=== PATIENT | male | born 1955 | race Caucasian/White ===

== ENCOUNTER 2017-05-12 09:15 | Outpatient (CLI) | payer MEDICARE | END 2017-05-12 09:30 | disposition home or self-care (01) | LOC: RT.N 09:15 | PROVIDERS: ATTEND Nurse Practitioner Gerontology | DX: Z01.810 Encounter for preprocedural cardiovascular examination (principal) | CPT/HCPCS: 93005 ==

== ENCOUNTER 2017-05-12 18:07 | Outpatient (CLI) | payer MEDICARE ==
[2017-05-12 13:07] LABS: BASOPHILS % (AUTO) 0.6 %; EOSINOPHILS # (AUTO) 0.4 10^3/uL (0.0-0.7); EOSINOPHILS % (AUTO) 5.4 %; HCT - HEMATOCRIT 43.7 % (42.0-52.0); HGB - HEMOGLOBIN 14.6 g/dL (14.0-18.0); LYMPHOCYTES # (AUTO) 1.6 10^3/uL (1.5-3.5); LYMPHOCYTES % (AUTO) 19.5 %; MEAN CORPUSCULAR HEMOGLOBIN 32.2 pg (27.0-31.0); MEAN CORPUSCULAR HGB CONC 33.4 g/dL (32.0-36.0); MEAN CORPUSCULAR VOLUME 96.3 fL (80.0-94.0); MEAN PLATELET VOLUME 8.6 fL (7.4-11.4); MONOCYTES # (AUTO) 0.5 10^3/uL (0.0-1.0); MONOCYTES % (AUTO) 6.3 %; NEUTROPHILS # (AUTO) 5.5 10^3/uL (1.5-6.6); NEUTROPHILS % (AUTO) 68.2 %; NUCLEATED RED BLOOD CELLS AUTO 0.1 /100WBC; RED BLOOD COUNT 4.54 10^6/uL (4.70-6.10); RED CELL DISTRIBUTION WIDTH 15.3 % (12.0-15.0); UNCORRECTED WHITE BLOOD COUNT 8.1 x10^3/uL; WHITE BLOOD COUNT 8.1 x10^3/uL (4.8-10.8)
[2017-05-12 14:31] LABS: ALBUMIN/GLOBULIN RATIO 1.1 (1.0-2.2); BILIRUBIN,TOTAL 0.7 mg/dL (0.2-1.0); BUN - BLOOD UREA NITROGEN 19 mg/dL (6-20); CARBON DIOXIDE - CO2 28 mmol/L (21-32); CHLORIDE 105 mmol/L (101-111); CHOL/HDL RATIO 2.8 (<5.0); CHOLESTEROL 168 mg/dL; CREATININE 0.8 mg/dL (0.6-1.2); GFR - MDRD 99 (>89); GLUCOSE 98 mg/dL (70-100); HDL CHOLESTEROL 60 mg/dL; LDL/HDL RATIO 1.6 (<3.6); POTASSIUM 4.1 mmol/L (3.5-5.0); SODIUM 137 mmol/L (135-145); TRIGLYCERIDES 53 mg/dL; VLDL CHOLESTEROL 11 mg/dL
== END 2017-05-12 18:08 | disposition home or self-care (01) ==
LOC: LAB.N 18:07
PROVIDERS: ATTEND Nurse Practitioner Gerontology
DX: Z01.818 Encounter for other preprocedural examination (principal); I10 Essential (primary) hypertension; B19.20 Unspecified viral hepatitis C without hepatic coma; Z13.9 Encounter for screening, unspecified
CPT/HCPCS: 36415; 80053; 80061; 84443; 85025; 87640

== ENCOUNTER 2017-09-29 10:29 | Outpatient (CLI) | payer MEDICARE, MEDICAID | END 2017-09-29 10:30 | disposition home or self-care (01) | LOC: LAB 10:29 | PROVIDERS: ATTEND Orthopaedic Surgery | DX: Z01.812 Encounter for preprocedural laboratory examination (principal); M16.12 Unilateral primary osteoarthritis, left hip; M25.832 Other specified joint disorders, left wrist | CPT/HCPCS: 36415; 86850; 86900; 86901 ==

== ENCOUNTER 2017-09-30 07:30 | Inpatient (IN) | payer MEDICARE, MEDICAID ==
[~2017-09-30 07:30] MED LIST: ceFAZolin 2 GM/50 ML 2 GM/50 ML BAG IV ONE
[2017-09-30] MEDS ORDERED: ACETAMINOPHEN 1,000 MG/100 ML 100 ML IV ONE ×2 (08:22→12:06)
[2017-09-30] MEDS ORDERED: CELECOXIB 100 MG CAPSULE PO ONE (08:22)
[2017-09-30] MEDS ORDERED: LACTATED RINGERS 1,000 ML IV ONE ×2 (09:12→13:46)
[2017-09-30] MEDS ORDERED: BUPIVACAINE 0.5%-EPI 1:200000 PF 10 ML VIAL ONE (10:40)
[2017-09-30] MEDS ORDERED: EPINEPHrine 1 MG/ML AMP ONE (10:40)
[2017-09-30] MEDS ORDERED: ROPIVACAINE 0.5% PF 20 ML AMPULE ONE (10:41)
[2017-09-30] MEDS ORDERED: KETOROLAC 30 MG/ML VIAL IVP ONE ×2 (12:06→12:46)
[2017-09-30] MEDS ORDERED: PROPOFOL 200 MG/20 ML VIAL IVP ONE (12:06)
[2017-09-30] MEDS ORDERED: fentaNYL 100 MCG/2 ML VIAL IVP ONE (12:06)
[2017-09-30] MEDS ORDERED: ONDANSETRON 4 MG/2 ML VIAL IVP ONE (12:06)
[2017-09-30] MEDS ORDERED: MORPHINE PF 10 MG/10 ML AMP EPI ONE (12:06)
[2017-09-30] MEDS ORDERED: LIDOCAINE-MPF 2% 5 ML VIAL IM ONE (12:06)
[2017-09-30] MEDS ORDERED: ROCURONIUM 50 MG/5 ML VIAL IVP ONE (12:06)
[2017-09-30] MEDS ORDERED: GLYCOPYRROLATE 1 MG/5 ML VIAL IVP ONE (12:06)
[2017-09-30] MEDS ORDERED: BUPIVACAINE 0.5%-EPI 1:200000 PF 30 ML VIAL SUBQ ONE (12:43)
[2017-09-30] MEDS ORDERED: MORPHINE PF 10 MG/10 ML AMP SUBQ ONE (12:44)
[2017-09-30] MEDS ORDERED: ROPIVACAINE 0.5% PF 20 ML AMPULE SUBQ ONE (12:44)
[2017-09-30] MEDS ORDERED: EPINEPHrine 1 MG/ML AMP IVP ONE (12:45)
[2017-09-30] MEDS ORDERED: ACETAMINOPHEN 1,000 MG/100 ML 100 ML IV PRN (13:34)
[2017-09-30] MEDS ORDERED: BISACODYL 10 MG SUPP PR PRN (13:34)
--- NOTE | 2017-09-30 13:34 | OPERATIVE REPORT ---
Operative Report - General Admit Date: 09/30/17 Procedure Date: 09/30/17 Planned Procedure: left JETHRO, and excision left wrist mass Pre-Op Diagnosis: left hip osteoarthritis/ left wrist dorsal mass Procedure Performed: Left total hip arthroplasty excision of left wrist dorsal mass - Procedure Note Primary Surgeon: dann Anesthesia Technique: General ET tube Estimated Blood Loss (mL): 100
[2017-09-30] MEDS: fentaNYL 100 MCG/2 ML VIAL ONE ×4 (13:37→14:11)
[2017-09-30] MEDS: HYDROmorphone 1 MG/ML CARPUJECT ONE ×3 (13:38→14:15)
[2017-09-30] MEDS: HYDROmorphone 1 MG/ML CARPUJECT IVP PRN ×4 (13:56→17:30)
[2017-09-30] MEDS ORDERED: HYDROmorphone 1 MG/ML CARPUJECT ONE (14:19)
[2017-09-30] MEDS ORDERED: INSULIN REGULAR HUMAN 100 UNIT/1 ML 10 ML MDV ONE (14:47)
--- NOTE | 2017-09-30 14:47 | XRAY Report ---
LEFT HIP AND PELVIS: 09/30/2017 CLINICAL INDICATION: Postop. FINDINGS: Frontal view of the hips and pelvis and crosstable lateral view of the left hip demonstrate a left hip replacement in place. Subcutaneous gas is seen. No fracture or acute hardware complication is appreciated. IMPRESSION: EXPECTED POSTOPERATIVE APPEARANCE OF LEFT HIP REPLACEMENT. TD: 09/30/2017 14:46
[2017-09-30] MEDS: SODIUM CHLORIDE 0.45% 1,000 ML IV SCH (15:05)
[2017-09-30] MEDS: SODIUM CHLORIDE FLUSH 0.9% 10 ML SYRINGE IVP SCH (15:54)
[2017-09-30] MEDS: oxyCOD/ACETAMIN 5 MG/325 MG TABLET PO PRN ×2 (17:27→20:47)
[2017-09-30] MEDS: ONDANSETRON 4 MG/2 ML VIAL IVP PRN (18:50)
[2017-09-30] MEDS: PROCHLORPERAZINE 10 MG/2 ML VIAL IVP PRN (19:56)
--- NOTE | 2017-09-30 20:12 | OPERATIVE REPORT ---
DATE OF SERVICE: 09/30/2017 Physician: Lorne Best MD PREOPERATIVE DIAGNOSIS: Left hip osteoarthritis. SECONDARY DIAGNOSIS: Left dorsal wrist mass. POSTOPERATIVE DIAGNOSIS: NAME OF PROCEDURE 1. Left total hip arthroplasty. 2. Left dorsal wrist mass excision. OPERATING SURGEON: Lorne Best MD ANESTHESIA: General by Dr. Klein. INDICATIONS FOR SURGERY: Patient is a 62-year-old male with severe bilateral hip arthritis, who has undergone previous successful right hip arthroplasty and presents now for left hip arthroplasty. The patient has failed nonoperative treatment, has chronic hip pain and limping. Additionally, the patient has a bothersome and longstanding pea-sized nodule at the dorsal aspect of his wrist, adjacent to the distal aspect of the ulna. This has been slightly tender, fluctuant in size, and appears to be either a ganglion of a tendon sheath or a fibroma-type cyst. Recommendation was that the patient have this directly excised while under anesthesia. DESCRIPTION OF OPERATIVE PROCEDURE: The patient was taken to the operating room and was given a general anesthetic in the supine position. The patient was positioned on the table for an anterior approach to his left hip. This included padding beneath his sacrum, a sterile towel over the groin area and sterile prepping and draping of both lower extremities with the left hip surgical site covered with Vi-Drape. The initial procedure after surgical timeout was to create an anterior approach to the left hip utilizing an 8 cm oblique incision over the proximal hip, extending down to the fascia overlying the tensor fascia muscle. This fascia was incised longitudinally and a direct anterior approach was made medial to the tensor muscle. With retractors in position, the anterior capsule of the hip was approached and cautery was used to control the [TIME: 02:51] of vessels on that approach and fatty tissues removed from the capsule. A capsulotomy was performed and capsulectomy with removal of the tissue. With further retraction and placement of retractors intracapsular to expose the femoral neck, a napkin-ring osteotomy was performed, freeing up the femur and the femoral head which was then removed with corkscrew and retractors then positioned for exposure of the acetabulum. The rim of the acetabulum was well exposed and the landmarks so that sequential reaming could be undertaken, starting with a smaller 49 reamer and marching up ultimately a 53 mm, aiming for anatomic placement of the cup in a well-centered and medialized position. The 54 mm G7 Osito cup was inserted and did not require further fixation with screws, as it was stable. The standard liner was inserted, and this was a [id number] liner. The femur was then exposed with appropriate retraction and muscle release and a lowering of the end of the bed and a figure-4 position. Once appropriate exposure was gained, the proper canal finder reamer was sent down the femur, followed by sequential broaching up to accommodate a size 10 femoral component. Trial reduction was undertaken, and the most appropriate fit was with a -3 mm neck length. This yielded equal limb lengths, full range of motion with no tendency toward instability. Trial components were removed, and the hip area was flushed and irrigated, followed by insertion of the Taperloc size 10 femoral stem, followed by the -3 mm neck inserted with the ceramic head. This was reinserted carefully into the acetabulum and was stable and reproduced the prior landmarks and length. The wound was again irrigated. Closure was undertaken with #1 Ethibond in a running fashion in the fascia overlying the tensor, followed by subcutaneous closure of #3-0 Vicryl and skin closure of #3-0 Monocryl. A sterile dressing was applied. Dressings were removed, and the surgical site was cleaned and the approach made for the wrist where a sterile prep and drape was made of the distal forearm. An Esmarch was used as a tourniquet and an oblique incision made over the small mass, the incision being about 1.5 cm in length and exposing directly in the subcutaneous tissue a pea-sized nodular, somewhat firm tissue that appeared to be a small fibrous mass with no surrounding infiltration and no edema. This small lump was sent for excisional biopsy. The area was flushed and closed with interrupted Vicryl suture and interrupted #3-0 nylon in the skin with a small Tegaderm dressing applied. The patient was then taken to the recovery room in stable condition. The estimated blood loss for the procedure was minimal. Complications were none. Sponge and needle counts: Correct. The estimated blood loss for the hip was under 50 mL. IMPLANTS USED, LEFT HIP: Size 10 cementless Taperloc Osito hip, a G7 cementless 54 mm cup with a standard poly insert. TD: 09/30/2017 20:11
[2017-09-30] MEDS: PANTOPRAZOLE 40 MG TABLET PO SCH (20:47)
[2017-09-30] MEDS: ceFAZolin 2 GM/50 ML 2 GM/50 ML BAG IV SCH (20:47)
[2017-09-30] MEDS ORDERED: LISINOPRIL 20 MG TABLET PO SCH (21:00)
[2017-09-30] MEDS: hydroCHLOROthiazide 12.5 MG CAPSULE PO SCH (22:27)
[2017-10-01] MEDS: oxyCOD/ACETAMIN 5 MG/325 MG TABLET PO PRN ×5 (00:45→19:44)
[2017-10-01] MEDS: SODIUM CHLORIDE 0.45% 1,000 ML IV SCH (01:40)
[2017-10-01] MEDS: CALCIUM CARBONATE CHEW 500 MG TABLET PO PRN ×2 (02:09→05:01)
[2017-10-01] MEDS: ceFAZolin 2 GM/50 ML 2 GM/50 ML BAG IV SCH (04:13)
[2017-10-01] MEDS: SODIUM CHLORIDE FLUSH 0.9% 10 ML SYRINGE IVP SCH ×4 (04:17→14:04)
[2017-10-01 04:39] LABS: BASOPHILS % (AUTO) 0.8 %; EOSINOPHILS % (AUTO) 0.6 %; HGB - HEMOGLOBIN 10.1 g/dL (14.0-18.0); LYMPHOCYTES % (AUTO) 13.1 %; MEAN CORPUSCULAR HEMOGLOBIN 33.1 pg (27.0-31.0); MEAN CORPUSCULAR HGB CONC 34.2 g/dL (32.0-36.0); MEAN CORPUSCULAR VOLUME 96.7 fL (80.0-94.0); MEAN PLATELET VOLUME 8.3 fL (7.4-11.4); MONOCYTES % (AUTO) 8.1 %; NEUTROPHILS % (AUTO) 77.4 %; PLT - PLATELET COUNT 157 10^3/uL (130-450); RED BLOOD COUNT 3.07 10^6/uL (4.70-6.10); RED CELL DISTRIBUTION WIDTH 14.4 % (12.0-15.0); WHITE BLOOD COUNT 10.9 x10^3/uL (4.8-10.8)
[2017-10-01 04:50] LABS: CALCIUM 8.1 mg/dL (8.5-10.3)
[2017-10-01 04:51] LABS: ABNORMAL LYMPHS % (MANUAL) 0 %
[2017-10-01 05:48] LABS: BAND NEUTROPHILS % (MANUAL) 1 %; LYMPHOCYTES # (MANUAL) 3.2 10^3/uL (1.5-3.5); LYMPHOCYTES % (MANUAL) 22 %; MONOCYTES # (MANUAL) 0.5 10^3/uL (0.0-1.0); NEUTROPHILS # (MANUAL) 7.2 10^3/uL (1.5-6.6); NEUTROPHILS % (MANUAL) 65 %
[2017-10-01 05:50] LABS: DIFFERENTIAL COMMENT MANUAL DIFFERENTIAL; PLATELET ESTIMATE, MANUAL NORMAL (130-450,000) (NORMAL); PLATELET MORPHOLOGY NORMAL APPEARANCE (NORMAL); RBC MORPHOLOGY (MULTIPLE) NORMAL APPEARANCE (NORMAL)
--- NOTE | 2017-10-01 06:46 | PROVIDER PROGRESS NOTE ---
Subjective - General Admit Date: 09/30/17 Procedure Date: 09/30/17 Post Op Days: 1 Procedure Performed: left total hip arthroplasty/left wrist mass excision - Review of Systems Wound/Incisions: positive: Drainage Musculoskeletal: positive: Joint pain Psychiatric: positive: No symptoms Objective - Patient Data Reviewed Vital Signs: Yes Vital Signs: Vital Signs x48h Temp Pulse Resp BP Pulse Ox 10/01/17 05:00 37.0 C 60 16 101/50 L 96 10/01/17 00:30 36.6 C 52 L 18 104/46 L 98 Weight: Weight 09/29/17 09/30/17 10/01/17 23:59 23:59 23:59 Weight (kg) 75 kg Intake & Output: Intake and Output Totals x24h 09/29/17 09/30/17 10/01/17 23:59 23:59 23:59 Intake Total 440 1661.667 Output Total 100 375 Balance 340 1286.667 - Lab Results Lab Results: 10/01/17 04:17 10/01/17 04:17 Other Lab Results: Lab Results x24hrs 10/01/17 10/01/17 Range/Units 04:17 04:17 WBC 10.9 H (4.8-10.8) x10^3/uL RBC 3.07 L (4.70-6.10) 10^6/uL Hgb 10.1 L (14.0-18.0) g/dL Hct 29.6 L (42.0-52.0) % MCV 96.7 H (80.0-94.0) fL MCH 33.1 H (27.0-31.0) pg MCHC 34.2 (32.0-36.0) g/dL RDW 14.4 (12.0-15.0) % Plt Count 157 (130-450) 10^3/uL MPV 8.3 (7.4-11.4) fL Neut # Not Reportable Lymph # Not Reportable Hamilton # Not Reportable Eos # Not Reportable Baso # Not Reportable Absolute Nucleated RBC Not Reportable Total Counted 100 Band Neuts % (Manual) 1 (0 - 10) % Reactive Lymphs % (Man) 7 % Abnorm Lymph % (Manual) 0 % Nucleated RBC % Not Reportable Neutrophils # (Manual) 7.2 H (1.5-6.6) 10^3/uL Lymphocytes # (Manual) 3.2 (1.5-3.5) 10^3/uL Monocytes # (Manual) 0.5 (0.0-1.0) 10^3/uL Eosinophils # (Manual) 0.0 (0-0.7) 10^3/uL Basophils # (Manual) 0.0 (0-0.1) 10^3/uL Differential Comment MANUAL DIFFERENTIAL Platelet Estimate NORMAL (130-450,000) (NORMAL) Platelet Morphology NORMAL APPEARANCE (NORMAL) RBC Morph Micro Appear NORMAL APPEARANCE (NORMAL) Sodium 132 L (135-145) mmol/L Potassium 3.8 (3.5-5.0) mmol/L Chloride 97 L (101-111) mmol/L Carbon Dioxide 31 (21-32) mmol/L Anion Gap 4.0 L (6-13) BUN 30 H (6-20) mg/dL Creatinine 1.0 (0.6-1.2) mg/dL Estimated GFR (MDRD) 76 L (>89) Glucose 118 H (70-100) mg/dL Calcium 8.1 L (8.5-10.3) mg/dL - Imaging Results Radiology Imaging: positive: EMP read indepedently - Current Medications Current Medications: Current Medications Generic Name Dose Route Start Last Admin Trade Name Freq PRN Reason Stop Dose Admin Calcium Carbonate/Glycine 500 mg 10/01/17 01:55 10/01/17 05:01 Tums PO 500 mg BID PRN Administration INDIGESTION Hydrochlorothiazide 12.5 mg 09/30/17 21:00 09/30/17 22:27 Hydrodiuril PO Not Given DAILY KAMERON Hydromorphone HCl 1 mg 09/30/17 13:34 09/30/17 17:30 Dilaudid Inj Carp IVP 1 mg Q2HR PRN Administration Breakthrough Pain Sodium Chloride 1,000 mls @ 100 mls/hr 09/30/17 14:00 10/01/17 05:09 Normal Saline 0.45% IV 100 mls/hr .Q10H KAMERON Infusion Lisinopril 40 mg 09/30/17 21:00 09/30/17 22:27 Zestril PO Not Given QPM KAMERON Ondansetron HCl 4 mg 09/30/17 13:34 09/30/17 18:50 Zofran Inj IVP 4 mg Q6HR PRN Administration Nausea / Vomiting Oxycodone/Acetaminophen 1 tab 09/30/17 13:34 10/01/17 04:54 Percocet 5 Mg/325 Mg PO 1 tab Q4HR PRN Administration PAIN Pantoprazole Sodium 40 mg 09/30/17 21:00 09/30/17 20:47 Protonix PO 40 mg QPM KAMERON Administration Prochlorperazine Edisylate 10 mg 09/30/17 13:34 09/30/17 19:56 Compazine Inj IVP 10 mg Q6HR PRN Administration Nausea / Vomiting Sodium Chloride 10 ml 09/30/17 17:00 10/01/17 04:17 Normal Saline Flush 0.9% IVP Not Given 0100,0900,1700 KAMERON - Physical Exam Wound/Incisions: positive: Drainage General Appearance: positive: No acute distress Abdomen: positive: No distention Extremities: positive: Joint swelling Neurologic/Psychiatric: positive: Oriented x3, CN's nml (2-12), Motor nml, Sensation nml, Mood/affect nml Impression/Plan - Problem List Problem List: POD #1: Pt is doing well. His dressing had blood seepage overnight and was changed. Wound inspected today and it is "A" plan for PT.
[2017-10-01] MEDS: FAMOTIDINE 20 MG TABLET PO SCH (08:41)
[2017-10-01] MEDS: ASPIRIN EC 325 MG TABLET PO SCH ×2 (08:41→20:21)
[2017-10-01] MEDS: HYDROmorphone 1 MG/ML CARPUJECT IVP PRN ×2 (08:41→14:02)
[2017-10-01] MEDS: hydroCHLOROthiazide 12.5 MG CAPSULE PO SCH (08:41)
[2017-10-01] MEDS: SODIUM CHLORIDE FLUSH 0.9% 10 ML SYRINGE IVP PRN ×2 (08:53→14:17)
[2017-10-01] MEDS: ACETAMINOPHEN 325 MG TABLET PO PRN (10:43)
[2017-10-01] MEDS: LISINOPRIL 20 MG TABLET PO SCH (20:21)
[2017-10-01] MEDS: PANTOPRAZOLE 40 MG TABLET PO SCH (20:21)
[2017-10-02] MEDS: oxyCOD/ACETAMIN 5 MG/325 MG TABLET PO PRN ×5 (01:02→20:06)
[2017-10-02] MEDS: ONDANSETRON 4 MG/2 ML VIAL IVP PRN (01:34)
[2017-10-02] MEDS: SODIUM CHLORIDE FLUSH 0.9% 10 ML SYRINGE IVP PRN ×5 (01:40→11:06)
[2017-10-02] MEDS: HYDROmorphone 1 MG/ML CARPUJECT IVP PRN ×4 (01:40→18:07)
[2017-10-02] MEDS: CALCIUM CARBONATE CHEW 500 MG TABLET PO PRN (02:00)
[2017-10-02] MEDS: SENNA 8.6 MG TABLET PO PRN ×2 (05:12→09:00)
[2017-10-02] MEDS: PROCHLORPERAZINE 10 MG/2 ML VIAL IVP PRN (06:48)
--- NOTE | 2017-10-02 07:16 | PROVIDER PROGRESS NOTE ---
Subjective - General Admit Date: 09/30/17 Procedure Date: 09/30/17 Post Op Days: 2 Procedure Performed: left total hip arthroplasty/left wrist mass excision - Review of Systems Wound/Incisions: positive: Healing well HEENT: positive: No symptoms Pulmonary: positive: No symptoms Cardiovascular: positive: No symptoms Musculoskeletal: positive: Joint pain Psychiatric: positive: No symptoms Objective - Patient Data Reviewed Vital Signs: Yes Vital Signs: Vital Signs x48h Temp Pulse Resp BP Pulse Ox 10/02/17 01:00 37.0 C 78 24 113/63 99 Weight: Weight 09/30/17 10/01/17 10/02/17 23:59 23:59 23:59 Weight (kg) 75 kg Intake & Output: Intake and Output Totals x24h 09/30/17 10/01/17 10/02/17 23:59 23:59 23:59 Intake Total 440 3900.000 1000 Output Total 100 375 Balance 340 3525.000 1000 - Lab Results Lab Results: 10/01/17 04:17 10/01/17 04:17 - Current Medications Current Medications: Current Medications Generic Name Dose Route Start Last Admin Trade Name Freq PRN Reason Stop Dose Admin Acetaminophen 650 - 975 mg 09/30/17 13:34 10/01/17 10:43 Tylenol PO 325 mg Q4HR PRN Administration PAIN Aspirin 325 mg 10/01/17 09:00 10/01/17 20:21 Ecotrin PO 325 mg BID KAMERON Administration Calcium Carbonate/Glycine 500 mg 10/01/17 01:55 10/02/17 02:00 Tums PO 500 mg BID PRN Administration INDIGESTION Famotidine 20 mg 10/01/17 09:00 10/01/17 08:41 Pepcid PO 20 mg DAILY KAMERON Administration Hydromorphone HCl 1 mg 09/30/17 13:34 10/02/17 05:13 Dilaudid Inj Carp IVP 1 mg Q2HR PRN Administration Breakthrough Pain Lisinopril 40 mg 10/01/17 21:00 10/01/17 20:21 Zestril PO 40 mg QPM KAMERON Administration Ondansetron HCl 4 mg 09/30/17 13:34 10/02/17 01:34 Zofran Inj IVP 4 mg Q6HR PRN Administration Nausea / Vomiting Oxycodone/Acetaminophen 1 tab 09/30/17 13:34 10/02/17 06:41 Percocet 5 Mg/325 Mg PO 1 tab Q4HR PRN Administration PAIN Pantoprazole Sodium 40 mg 09/30/17 21:00 10/01/17 20:21 Protonix PO 40 mg QPM KAMERON Administration Prochlorperazine Edisylate 10 mg 09/30/17 13:34 10/02/17 06:48 Compazine Inj IVP 10 mg Q6HR PRN Administration Nausea / Vomiting Senna 17.2 mg 09/30/17 13:34 10/02/17 05:12 Senokot PO 17.2 mg Q12H PRN Administration Constipation Sodium Chloride 10 ml 09/30/17 17:00 10/01/17 14:04 Normal Saline Flush 0.9% IVP 10 ml 0100,0900,1700 KAMERON Administration Sodium Chloride 10 ml 09/30/17 13:34 10/02/17 06:48 Normal Saline Flush 0.9% IVP 10 ml PRN PRN Administration NEEDED PER PROVIDER ORDERS - Physical Exam Wound/Incisions: positive: Healing well Cardiovascular: positive: Regular rate & rhythm Abdomen: positive: Non-tender Skin: positive: No rash, Warm, Dry Extremities: positive: Joint swelling Neurologic/Psychiatric: positive: Motor nml, Sensation nml, Mood/affect nml Impression/Plan - Problem List Problem List: POD #2 Pt is doing better with less pain. Still requires some dilaudid Will advance PT.
[2017-10-02] MEDS: FAMOTIDINE 20 MG TABLET PO SCH (09:00)
[2017-10-02] MEDS: DOCUSATE SODIUM 250 MG CAPSULE PO SCH (09:00)
[2017-10-02] MEDS: ASPIRIN EC 325 MG TABLET PO SCH ×2 (09:01→20:07)
[2017-10-02] MEDS: hydroCHLOROthiazide 12.5 MG CAPSULE PO SCH (09:01)
[2017-10-02] MEDS: SODIUM CHLORIDE FLUSH 0.9% 10 ML SYRINGE IVP SCH ×2 (09:10→15:45)
[2017-10-02] MEDS ORDERED: KETOROLAC 30 MG/ML VIAL IVP PRN (10:27)
[2017-10-02] MEDS: ACETAMINOPHEN 325 MG TABLET PO PRN (11:05)
[2017-10-02] MEDS: PANTOPRAZOLE 40 MG TABLET PO SCH (20:06)
[2017-10-02] MEDS: LISINOPRIL 20 MG TABLET PO SCH (20:07)
[2017-10-03] MEDS: oxyCOD/ACETAMIN 5 MG/325 MG TABLET PO PRN ×4 (00:06→12:03)
[2017-10-03] MEDS: SODIUM CHLORIDE FLUSH 0.9% 10 ML SYRINGE IVP SCH ×2 (01:09→08:15)
[2017-10-03] MEDS: CALCIUM CARBONATE CHEW 500 MG TABLET PO PRN ×2 (01:21→04:06)
[2017-10-03] MEDS: PROCHLORPERAZINE 10 MG/2 ML VIAL IVP PRN (04:12)
[2017-10-03] MEDS: SODIUM CHLORIDE FLUSH 0.9% 10 ML SYRINGE IVP PRN (04:12)
[2017-10-03] MEDS: DOCUSATE SODIUM 250 MG CAPSULE PO SCH (08:01)
[2017-10-03] MEDS: ASPIRIN EC 325 MG TABLET PO SCH (08:11)
[2017-10-03] MEDS: hydroCHLOROthiazide 12.5 MG CAPSULE PO SCH (08:11)
[2017-10-03] MEDS: FAMOTIDINE 20 MG TABLET PO SCH (08:11)
--- NOTE | 2017-10-03 10:00 | Discharge Plan ---
Discharge Plan Disposition: 01 Home, Self Care Condition: Good Prescriptions: oxyCODONE/ACET 5/325 [Percocet 5 mg/325 mg] 1 tab PO Q4HR PRN #30 tablet PRN Reason: Pain Aspirin EC [Ecotrin] 325 mg PO BID #60 tablet Docusate Sodium 250Mg Capsule [Colace 250Mg Capsule] 250 - 500 mg PO DAILY #20 capsule Diet: Regular Activity Restrictions: Wt Bearing as Tolerated Shower Restrictions: Yes (covered) Driving Restrictions: Yes (no driving) Assistance Devices: Walker Weight Bearing: Full Weight Instruction Topics: Hip Replacement Additional Instructions or Follow Up instructions: dressing on left hip to be left clean and dry. No Smoking: If you smoke, Please STOP! Call for help. Follow-up with: Judi Farooq ARNP [Primary Care Provider] - Lorne Best MD [Provider Admit Priv/Credential] -
[2017-10-03 12:01] VITALS: BP 142/80
--- NOTE | 2017-10-08 16:38 | DISCHARGE SUMMARY ---
Physician: Lorne Best MD DATE OF ADMISSION: 09/30/2017 DATE OF DISCHARGE: 10/03/2017 ADMISSION DIAGNOSES 1. Left hip osteoarthritis. 2. Left dorsal wrist mass. OPERATIVE PROCEDURE: 09/30/2017, a left total hip arthroplasty and a left wrist mass excision. REASON FOR ADMISSION: Patient is a 62-year-old male with progressive severe osteoarthritis of his left hip with functional limitations and failure of conservative care, who now is admitted for total hip arthroplasty. He also has a chronic small mass on the dorsum of his left wrist at the level of the distal ulna, which is bothersome and tender and firm and recommendation is for surgical excisional biopsy. The patient's history and physical exam are documented in his admission record. HOSPITAL COURSE: The patient was admitted and underwent surgery on 09/30/2017. The patient tolerated this well. In the postoperative period, the patient was placed on the medical/surgical floor and received standard postoperative care after her hip replacement and wrist surgery. He continues to show uneventful recovery during his hospitalization. At the time of discharge on 10/03/2017 his wounds were healing well, he was showing no sign of infection. He was comfortable with p.o. pain medication. He was discharged at that point home to continue using his oxycodone pain medication as needed and to use aspirin twice a day for DVT prophylaxis. His planned followup was to be in the office on 10/08/2017. TD: 10/08/2017 16:37
[2017-12-30] MEDS ORDERED: ONDANSETRON 4 MG/2 ML VIAL IVP ONE (13:37)
[2017-12-30] MEDS ORDERED: ROCURONIUM 50 MG/5 ML VIAL IVP ONE (13:37)
[2017-12-30] MEDS ORDERED: fentaNYL 100 MCG/2 ML VIAL IVP ONE (13:37)
[2017-12-30] MEDS ORDERED: NEOSTIGMINE 1 MG/1 ML 10 ML MDV IVP ONE (13:37)
[2017-12-30] MEDS ORDERED: LIDOCAINE-MPF 2% 5 ML VIAL IM ONE (13:37)
[2017-12-30] MEDS ORDERED: KETOROLAC 30 MG/ML VIAL IVP ONE (13:37)
[2017-12-30] MEDS ORDERED: PROPOFOL 200 MG/20 ML VIAL IVP ONE (13:37)
[2017-12-30] MEDS ORDERED: GLYCOPYRROLATE 1 MG/5 ML VIAL IVP ONE (13:37)
[2017-12-30] MEDS ORDERED: MORPHINE PF 5 MG/10 ML AMP EP ONE (13:37)
[2017-12-30] MEDS ORDERED: ACETAMINOPHEN 1,000 MG/100 ML 100 ML IV ONE (13:37)
== END 2017-10-03 12:07 | disposition home or self-care (01) | DRG 465 ==
LOC: MS3 09:07
PROVIDERS: ADMIT Orthopaedic Surgery; ATTEND Orthopaedic Surgery
PROC: 0SRB02A Replacement of Left Hip Joint with Metal on Polyethylene Synthetic Substitute, Uncemented, Open Approach (ICD-10-PCS; principal; 2017-09-30 10:00)
PROC: 0JBH0ZZ Excision of Left Lower Arm Subcutaneous Tissue and Fascia, Open Approach (ICD-10-PCS; 2017-09-30 10:00)
DX: M16.12 Unilateral primary osteoarthritis, left hip (principal); G89.29 Other chronic pain; R22.32 Localized swelling, mass and lump, left upper limb; I10 Essential (primary) hypertension; B19.20 Unspecified viral hepatitis C without hepatic coma; Z96.641 Presence of right artificial hip joint
CPT/HCPCS: 36415; 80048; 85025; 88307; 88341; 88342

== ENCOUNTER 2018-09-15 13:53 | Outpatient (CLI) | payer MEDICARE, MEDICAID ==
[2018-09-15 18:48] LABS: BASOPHILS % (AUTO) 0.6 %; EOSINOPHILS # (AUTO) 0.1 10^3/uL (0.0-0.7); HGB - HEMOGLOBIN 14.7 g/dL (14.0-18.0); LYMPHOCYTES # (AUTO) 1.6 10^3/uL (1.5-3.5); LYMPHOCYTES % (AUTO) 25.9 %; MEAN CORPUSCULAR HEMOGLOBIN 32.6 pg (27.0-31.0); MEAN CORPUSCULAR VOLUME 98.7 fL (80.0-94.0); MEAN PLATELET VOLUME 9.1 fL (7.4-11.4); MONOCYTES # (AUTO) 0.5 10^3/uL (0.0-1.0); MONOCYTES % (AUTO) 7.4 %; NEUTROPHILS % (AUTO) 64.1 %; PLT - PLATELET COUNT 201 10^3/uL (130-450); RED CELL DISTRIBUTION WIDTH 14.6 % (12.0-15.0); WHITE BLOOD COUNT 6.3 x10^3/uL (4.8-10.8)
[2018-09-15 19:18] LABS: ALBUMIN 3.7 g/dL (3.2-5.5); ALBUMIN/GLOBULIN RATIO 0.9 (1.0-2.2); ALKALINE PHOSPHATASE 57 IU/L (42-121); ALT ALANINE AMINOTRANSFERASE 63 IU/L (10-60); AST ASPARTATE AMINOTRANSFERASE 55 IU/L (10-42); BILIRUBIN,TOTAL 0.6 mg/dL (0.2-1.0); BUN - BLOOD UREA NITROGEN 12 mg/dL (6-20); CALCIUM 9.6 mg/dL (8.5-10.3); CARBON DIOXIDE - CO2 28 mmol/L (21-32); CHLORIDE 100 mmol/L (101-111); CHOL/HDL RATIO 2.7 (<5.0); CHOLESTEROL 170 mg/dL; CREATININE 0.8 mg/dL (0.6-1.2); GFR - MDRD 98 (>89); GLUCOSE 87 mg/dL (70-100); HDL CHOLESTEROL 64 mg/dL; LDL CHOLESTEROL,CALCULATED 92 mg/dL; LDL/HDL RATIO 1.4 (<3.6); SODIUM 137 mmol/L (135-145); TOTAL PROTEIN 7.6 g/dL (6.7-8.2); VLDL CHOLESTEROL 14 mg/dL
[2018-09-18 11:18] LABS: HCV RNA QNT 6.96 Log IU/mL (NOT DETECTED)
== END 2018-09-15 23:59 | disposition home or self-care (01) ==
LOC: LAB.N 13:53
PROVIDERS: ATTEND Nurse Practitioner Gerontology
DX: I10 Essential (primary) hypertension (principal); B19.20 Unspecified viral hepatitis C without hepatic coma
CPT/HCPCS: 36415; 80053; 80061; 83721; 85025; 87522

== ENCOUNTER 2020-05-09 22:51 | Emergency (ER) | payer MEDICARE, MEDICAID ==
[2020-05-09 23:00] VITALS: BP 133/82
[2020-05-09] MEDS ORDERED: HYDROcod/ACET 5/325 Prepack 4 PO STA (23:42)
[2020-05-09] MEDS ORDERED: KETOROLAC 60 MG/2 ML VIAL IM STA (23:42)
--- NOTE | 2020-05-09 23:55 | ED Physician Documentation ---
PD HPI ABD PAIN - Stated complaint Stated Complaint: LEFT SIDED PAIN - Chief complaint Chief Complaint: Abd Pain - History obtained from History obtained from: Patient, EMS - Additional information Additional information: Pt comes to the emergency department complaining of left inguinal pain after bending over and lifting heavy object. Patient states that he felt a sharp pain in the bulge in the area that he had not had before. Patient states he has not been able to push the "bulge" back in. Patient states that he had an inguinal hernia repair in the same area early and has not had a problem with this since. He states that she has not been regularly lifting anything heavier than he would usually left and has not had any lesser pain in the area leading up to this event. Patient denies any other complaints at this time. He states incident happened within the last couple of hours. Review of Systems Ten Systems: 10 systems reviewed and negative Constitutional: reports: Reviewed and negative Eyes: reports: Reviewed and negative Ears: reports: Reviewed and negative Nose: reports: Reviewed and negative Throat: reports: Reviewed and negative Cardiac: reports: Reviewed and negative Respiratory: reports: Reviewed and negative GI: reports: Abdominal Pain. denies: Nausea, Vomiting, Diarrhea : reports: Reviewed and negative Skin: reports: Reviewed and negative Musculoskeletal: reports: Reviewed and negative Neurologic: reports: Reviewed and negative Psychiatric: reports: Reviewed and negative Endocrine: reports: Reviewed and negative Immunocompromised: reports: Reviewed and negative PD PAST MEDICAL HISTORY - Past Medical History Past Medical History: Yes Cardiovascular: Hypertension Respiratory: None Neuro: None Endocrine/Autoimmune: None GI: GERD, Hepatitis : None HEENT: None Psych: None Musculoskeletal: Osteoarthritis Derm: None - Past Surgical History Past Surgical History: Yes General: Colonoscopy, Other Ortho: Hip replacement Derm: Other - Present Medications Home Medications: Ambulatory Orders Medication Instructions Recorded Confirmed lisinopriL [Zestril] 40 mg PO DAILY PM 05/25/13 09/30/17 Hydrochlorothiazide 12.5 mg PO DAILY PM 09/29/17 09/30/17 Omeprazole 40 mg PO DAILY PM 09/29/17 09/30/17 raNITIdine HCl [Acid Control] 150 mg PO DAILY 09/29/17 09/30/17 Aspirin EC [Ecotrin] 325 mg PO BID #60 tablet 10/03/17 Docusate Sodium 250Mg Capsule 250 - 500 mg PO DAILY #20 capsule 10/03/17 [Colace 250Mg Capsule] oxyCODONE/ACET 5/325 [Percocet 5 1 tab PO Q4HR PRN #30 tablet 10/03/17 mg/325 mg] - Allergies Allergies/Adverse Reactions: Allergies Allergy/AdvReac Type Severity Reaction Status Date / Time No Known Drug Allergies Allergy Verified 05/09/20 23:00 - Social History Does the pt smoke?: No Smoking Status: Never smoker Does the pt drink ETOH?: No Does the pt have substance abuse?: No - Immunizations Immunizations are current?: No - POLST Patient has POLST: No PD ED PE NORMAL - Vitals Vital signs reviewed: Yes - General General: Alert and oriented X 3, No acute distress - HEENT HEENT: Atraumatic, PERRL, EOMI, Moist mucous membranes - Neck Neck: Supple, no meningeal sign - Cardiac Cardiac: RRR, No murmur - Respiratory Respiratory: Clear bilaterally - Abdomen Abdomen: Soft, Non distended, Other (Tender, 4 cm diameter mass located over the left inguinal ligament. Reducible with firm pressure. No skin changes overlying. Mass/hernia does not recur after reduction.) - Male Male : Other - Back Back: No CVA TTP - Derm Derm: Normal color, Warm and dry, No rash - Extremities Extremities: No deformity, No edema, No calf tenderness / cord - Neuro Neuro: Alert and oriented X 3, Other (grossly normal) - Psych Psych: Normal mood, Normal affect Results - Vitals Vitals: Oxygen O2 Source Room air PD MEDICAL DECISION MAKING - ED course Complexity details: considered differential, d/w patient ED course: Anne-Marie with the patient that I reduced his hernia and that that is the most important thing at this time. I discussed with the patient that he may benefit from hernia repair, and as such, I am giving him contact information for the surgery clinic. However, this will not be done emergently, and in the meantime, patient should avoid straining or heavy lifting, which could exacerbate or cause recurrence of the hernia. We have discussed home management of the symptoms, as well as the usual indications for return. Departure - Departure Disposition: 01 Home, Self Care Clinical Impression: Inguinal hernia Qualifiers: Obstruction and gangrene presence: without obstruction or gangrene Laterality: unilateral Recurrence: non-recurrent Qualified Code(s): K40.90 - Unilateral inguinal hernia, without obstruction or gangrene, not specified as recurrent Condition: Stable Instructions: ED Hernia Inguinal Follow-Up: Elijah Smith MD [Provider Admit Priv/Credential] - Comments: Your examination today showed a left inguinal, or groin, hernia, which was able to be reduced or pushed back in to your abdominal cavity. Hernias are generally a chronic condition, and treatment depends on how often the hernia is bothering you and on your personal preference as to what you would like to do. In general, you should avoid any activities that would potentially cause your intra-abdominal structures to herniate again, such as bending and straining and heavy lifting. You should also eat plenty of fiber in your diet in the form of fresh fruits and vegetables to encourage your bowel movements to be soft, reducing your need for straining while defecating. If you develop a hernia mass that is not able to be pushed back in, then you will need to return to the emergency department to meet Discharge Date/Time: 05/10/20 00:04
== END 2020-05-10 00:04 | disposition home or self-care (01) ==
LOC: ED 22:51
DX: K40.90 Unilateral inguinal hernia, without obstruction or gangrene, not specified as recurrent (principal); X50.0XXA Overexertion from strenuous movement or load, initial encounter; I10 Essential (primary) hypertension
CPT/HCPCS: 96372; 99283; 99284

== ENCOUNTER 2021-06-20 15:49 | Outpatient (CLI) | payer MEDICARE, MEDICAID ==
[2021-06-20 18:20] LABS: BASOPHILS # (AUTO) 0.1 10^3/uL (0.0-0.1); BASOPHILS % (AUTO) 0.5 %; EOSINOPHILS # (AUTO) 0.2 10^3/uL (0.0-0.7); EOSINOPHILS % (AUTO) 1.8 %; HCT - HEMATOCRIT 45.6 % (42.0-52.0); HGB - HEMOGLOBIN 14.8 g/dL (14.0-18.0); LYMPHOCYTES % (AUTO) 17.8 %; MEAN CORPUSCULAR HEMOGLOBIN 29.4 pg (27.0-31.0); MEAN CORPUSCULAR HGB CONC 32.5 g/dL (32.0-36.0); MEAN CORPUSCULAR VOLUME 90.7 fL (80.0-94.0); MEAN PLATELET VOLUME 9.1 fL (7.4-11.4); MONOCYTES # (AUTO) 0.6 10^3/uL (0.0-1.0); MONOCYTES % (AUTO) 5.8 %; NEUTROPHILS # (AUTO) 8.2 10^3/uL (1.5-6.6); NEUTROPHILS % (AUTO) 73.8 %; PLT - PLATELET COUNT 333 10^3/uL (130-450); RED BLOOD COUNT 5.03 10^6/uL (4.70-6.10); WHITE BLOOD COUNT 11.1 x10^3/uL (4.8-10.8)
[2021-06-20 18:54] LABS: ALBUMIN 3.8 g/dL (3.2-5.5); ALBUMIN/GLOBULIN RATIO 0.9 (1.0-2.2); ALKALINE PHOSPHATASE 78 IU/L (42-121); ALT ALANINE AMINOTRANSFERASE 21 IU/L (10-60); AST ASPARTATE AMINOTRANSFERASE 20 IU/L (10-42); BILIRUBIN,TOTAL 0.7 mg/dL (0.2-1.0); BUN - BLOOD UREA NITROGEN 26 mg/dL (6-20); CALCIUM 9.8 mg/dL (8.5-10.3); CARBON DIOXIDE - CO2 30 mmol/L (21-32); CHLORIDE 100 mmol/L (101-111); CHOL/HDL RATIO 3.5 (<5.0); CHOLESTEROL 197 mg/dL; CREATININE 0.9 mg/dL (0.6-1.2); GFR - MDRD 85 (>89); GLUCOSE 96 mg/dL (70-100); HDL CHOLESTEROL 56 mg/dL; LDL CHOLESTEROL,CALCULATED 127 mg/dL; LDL/HDL RATIO 2.3 (<3.6); POTASSIUM 4.5 mmol/L (3.5-5.0); SODIUM 140 mmol/L (135-145); TOTAL PROTEIN 7.9 g/dL (6.7-8.2); TRIGLYCERIDES 71 mg/dL; VLDL CHOLESTEROL 14 mg/dL
[2021-06-20 19:05] LABS: THYROID STIMULATING HORMONE 8.81 uIU/mL (0.34-5.60)
[2021-06-20 19:48] LABS: FREE T4 (FREE THYROXINE) 0.86 ng/dL (0.58-1.64)
== END 2021-06-20 15:50 | disposition home or self-care (01) ==
LOC: LAB.N 15:49
PROVIDERS: ATTEND Family Medicine
DX: I10 Essential (primary) hypertension (principal); Z12.5 Encounter for screening for malignant neoplasm of prostate; K21.9 Gastro-esophageal reflux disease without esophagitis; B19.20 Unspecified viral hepatitis C without hepatic coma
CPT/HCPCS: 36415; 80053; 80061; 84439; 84443; 85025; 87522; G0103; 83721; 84153

== ENCOUNTER 2021-09-11 12:07 | Outpatient (CLI) | payer MEDICARE, MEDICAID | END 2021-09-11 12:08 | disposition critical access hospital (66) | LOC: EMS 12:07 | DX: M54.50 Low back pain, unspecified (principal); M79.605 Pain in left leg; M25.552 Pain in left hip; R26.2 Difficulty in walking, not elsewhere classified | CPT/HCPCS: A0425; A0429 ==

== ENCOUNTER 2021-09-11 12:38 | Emergency (ER) | payer MEDICARE, MEDICAID ==
[2021-09-11] MEDS ORDERED: HYDROmorphone 1 MG/ML CARPUJECT IVP STA ×2 (12:51→13:28)
--- NOTE | 2021-09-11 12:54 | ED Physician Documentation ---
History of Present Illness - Stated complaint Stated Complaint: BACK PX - Chief complaint Chief Complaint: Back Pain - Additonal information Additional information: 66-year-old male presents emergency department for evaluation of severe left low back pain with radiation to the leg. Reports that symptoms began in mid July. He states that with the pain he is loss sensation in the left leg and can no longer dorsi and plantarflex. He denies saddle anesthesia or bowel or bladder incontinence. To help control the pain he is taking six 325 mg aspirin tablets 3-4 times a day as well as up to 6 Tylenol tablets. No relief of pain. Denies any recent falls or trauma. Does have a history of bilateral hip replacement.He presents via EMS in exquisite pain. Review of Systems Constitutional: denies: Fever, Chills Eyes: reports: Reviewed and negative Ears: reports: Reviewed and negative Nose: reports: Reviewed and negative Cardiac: reports: Reviewed and negative Respiratory: reports: Reviewed and negative Musculoskeletal: reports: Back pain Neurologic: reports: Generalized weakness, Numbness PD PAST MEDICAL HISTORY - Past Medical History Cardiovascular: Hypertension Respiratory: None Neuro: None Endocrine/Autoimmune: None GI: GERD, Hepatitis : None HEENT: None Psych: None Musculoskeletal: Osteoarthritis Derm: None - Past Surgical History Past Surgical History: Yes General: Colonoscopy, Other Ortho: Hip replacement Derm: Other - Present Medications Home Medications: Ambulatory Orders Medication Instructions Recorded Confirmed lisinopriL [Zestril] 40 mg PO DAILY PM 05/25/13 09/11/21 Omeprazole 40 mg PO DAILY PM 09/29/17 09/11/21 hydroCHLOROthiazide 12.5 mg PO DAILY PM 09/29/17 09/11/21 [Hydrochlorothiazide] raNITIdine HCl [Acid Control] 150 mg PO DAILY 09/29/17 09/11/21 Aspirin EC [Ecotrin] 325 mg PO BID #60 tablet 10/03/17 09/11/21 Docusate Sodium 250Mg Capsule 250 - 500 mg PO DAILY #20 capsule 10/03/17 09/11/21 [Colace 250Mg Capsule] methylPREDNISolone [Medrol Dose 1 each PO .PACKAGEINSTRUCTIONS 6 09/11/21 Pack] Days #1 each oxyCODONE [Roxicodone] 5 mg PO TID PRN #20 tablet 09/11/21 - Allergies Allergies/Adverse Reactions: Allergies Allergy/AdvReac Type Severity Reaction Status Date / Time No Known Drug Allergies Allergy Verified 09/11/21 12:42 - Social History Does the pt smoke?: No Smoking Status: Never smoker Does the pt drink ETOH?: No Does the pt have substance abuse?: No - Immunizations Immunizations are current?: No - POLST Patient has POLST: No PD ED PE EXPANDED - General General: Alert, In Pain - Cardiac Cardiac: Regular Rate, Radial strong equal, Pedal strong equal, Cap refill < 2 sec - Respiratory Respiratory: Clear to ausultation eloy. No: Distress, Labored - Abdomen Abdomen: Normal Bowel sounds. No: Tender to palpation - Back Back: Soft tissue tenderness (Tenderness of the left SI joint. motor strength 4/5 at ankle and knee. 3+ [atellar reflex) - Derm Derm: Normal color, Warm and dry, Other (bilateral hip scars) - Neuro Neuro: Alert and Oriented X 3, CNII-XII intact - GCS Eye Opening: Spontaneous Motor: Obeys Commands Verbal: Oriented Total: 15 Results - Vitals Vitals: Vital Signs - 24 hr 09/11/21 09/11/21 09/11/21 12:42 13:11 14:02 Temperature 36.7 C Heart Rate 83 79 79 Respiratory 19 18 Rate Blood Pressure 143/79 H 119/74 O2 Saturation 97 100 97 Oxygen O2 Source Room air - Labs Labs: Laboratory Tests 09/11/21 09/11/21 12:58 12:58 WBC 5.9 RBC 4.01 L Hgb 12.2 L Hct 37.5 L MCV 93.5 MCH 30.4 MCHC 32.5 RDW 15.9 H Plt Count 270 MPV 8.3 Neut # (Auto) 3.7 Lymph # (Auto) 1.4 L [place] # (Auto) 0.6 Eos # (Auto) 0.2 Baso # (Auto) 0.0 Absolute Nucleated RBC 0.00 Nucleated RBC % 0.0 Sodium 139 Potassium 4.0 Chloride 107 Carbon Dioxide 22 Anion Gap 10.0 BUN 25 H Creatinine 0.9 Estimated GFR (MDRD) 85 L Glucose 152 H Calcium 8.8 Total Bilirubin 0.3 AST 28 ALT 25 Alkaline Phosphatase 57 Total Protein 6.6 L Albumin 3.2 Globulin 3.4 Albumin/Globulin Ratio 0.9 L Lipase 35 Salicylates 10.5 Acetaminophen < 10 L - Rads (name of study) Lumbar CT Radiology: Final report received (Severe spinal canal stenosis at L4-L5 varying degrees of neuroforaminal stenosis bilaterally L4-L5. Moderate to severe facet arthropathy lumbar spine L4-L5) PD MEDICAL DECISION MAKING - ED course Complexity details: reviewed results, re-evaluated patient, considered differential, d/w patient ED course: 66-year-old male comes to the emergency department for greater than 1 month of left low back pain that radiates down the left leg. He reports that he now has weakness especially in the ankle with dorsi and plantar flexion. He also has numbness in the left leg. He does not have any saddle anesthesia or loss of bowel or bladder function. He has had no fevers. Denies any history of intr avenous drug use. He has been taking aspirin at exceedingly high doses as well as Tylenol without relief of pain. Today screening labs showed no leukocytosis. His Tylenol and aspirin levels were not supratherapeutic. We did do a CT of the lumbar spine which does show severe spinal count canal stenosis at L4-L5 as well as severe degenerative disc disease and arthropathy. Here in the emergency department we did have some mild to moderate pain relief using Toradol and Dilaudid. He will be discharged with a prescription for a methylprednisolone Dosepak as well as oxycodone. Patient is advised that given the findings severe spinal canal stenosis he will need referral to a back surgeon. Return precautions were discussed for red flags that include saddle anesthesia and bowel and bladder incontinence. I am prescribing a short course of short-acting opioid pain medication for this patient. I have reviewed the patients [employer] and no concerning findings were noted. I have discussed that the opioids are for short term therapy only, and will not be refilled from the ED. Departure - Departure Disposition: Home, Self Care Clinical Impression: Cervical stenosis of spinal canal DJD (degenerative joint disease), lumbar Qualifiers: Spinal osteoarthritis complication: unspecified spinal osteoarthritis Qualified Code(s): M47.816 - Spondylosis without myelopathy or radiculopathy, lumbar region Condition: Stable Record reviewed to determine appropriate education?: Yes Instructions: Tx, ED Sciatica Prescriptions: methylPREDNISolone [Medrol Dose Pack] 1 each PO .PACKAGEINSTRUCTIONS 6 Days #1 each oxyCODONE [Roxicodone] 5 mg PO TID PRN #20 tablet PRN Reason: Pain Comments: Clay I am so sorry that you are having the severe back pain. The CT scan of your back shows severe lumbar spinal canal stenosis at L4-L5. There is also associated arthritis within the discs. This is causing a condition called sciatica which is inflammation of the large nerve that runs down your leg. This is why the leg is weak and somewhat numb. To help manage the condition I am prescribing you a steroid pack. This will help reduce inflammation around the nerve and pain over the next few days. For severe pain you can take the oxycodone. The emergency department will not be able to refill your pain meds over the next 2 to 3 weeks so it is important that you follow-up closely with your primary doctor. Because of the severe stenosis your primary doctor will need to make a referral for you to a back pain specialist or a back surgeon to determine if you would benefit from injections or even surgery to help manage the back pain. If at any point you ever lose control of your ability to urinate or defecate or you have numbness or tingling in your genital area then you are to return immediately to the ER for a second evaluation I am prescribing a short course of narcotic pain medication for you. These are potentially dangerous and addictive medications that should be used carefully. These medications may constipate you. Take an uoko-aaw-xdrjqma stool softener (docusate) twice daily with plenty of water while taking these medications. If you go 24 hours without a bowel movement, take [id number] miralax, per package instructions. Do not drink or drive while taking these medications. If you received narcotic or sedating medications while in the emergency department, do not drive for 24 hours. Store this medication in a safe, secure place and out of reach of children. It is a violation of federal law to give or sell this medication to another person or to use in a manner other than prescribed. The ED will not refill narcotic prescriptions, including prescriptions lost or stolen. To dispose of unwanted medications: 1. [facility] at [address] in [place] has a medication drop box. They accept prescription medications (in pill form) Friday through Friday 9:00 a.m. to 5:00 p.m. 2. The [facility] [employer] accepts prescription medications (in pill form only) for disposal year round. Call for more information. 3. Contact the [facility] for the next [facility] sponsored prescription drug collection event. , [phone], or [phone]; Note that many narcotic pain relievers also contain Tylenol/acetaminophen. Please ensure that your total dose of acetaminophen from all sources does not exceed 3 g (3000 mg) per day.
[2021-09-11 13:03] LABS: BASOPHILS % (AUTO) 0.7 %; EOSINOPHILS # (AUTO) 0.2 10^3/uL (0.0-0.7); EOSINOPHILS % (AUTO) 3.4 %; HCT - HEMATOCRIT 37.5 % (42.0-52.0); HGB - HEMOGLOBIN 12.2 g/dL (14.0-18.0); LYMPHOCYTES # (AUTO) 1.4 10^3/uL (1.5-3.5); LYMPHOCYTES % (AUTO) 23.1 %; MEAN CORPUSCULAR HEMOGLOBIN 30.4 pg (27.0-31.0); MEAN CORPUSCULAR HGB CONC 32.5 g/dL (32.0-36.0); MEAN CORPUSCULAR VOLUME 93.5 fL (80.0-94.0); MEAN PLATELET VOLUME 8.3 fL (7.4-11.4); MONOCYTES # (AUTO) 0.6 10^3/uL (0.0-1.0); MONOCYTES % (AUTO) 9.8 %; NEUTROPHILS # (AUTO) 3.7 10^3/uL (1.5-6.6); NEUTROPHILS % (AUTO) 62.8 %; PLT - PLATELET COUNT 270 10^3/uL (130-450); RED BLOOD COUNT 4.01 10^6/uL (4.70-6.10); RED CELL DISTRIBUTION WIDTH 15.9 % (12.0-15.0); WHITE BLOOD COUNT 5.9 x10^3/uL (4.8-10.8)
[2021-09-11 13:12] VITALS: BP 119/74
[2021-09-11 13:17] LABS: ACETAMINOPHEN < 10 ug/mL (10-30); ALBUMIN 3.2 g/dL (3.2-5.5); ALBUMIN/GLOBULIN RATIO 0.9 (1.0-2.2); ALKALINE PHOSPHATASE 57 IU/L (42-121); ALT ALANINE AMINOTRANSFERASE 25 IU/L (10-60); AST ASPARTATE AMINOTRANSFERASE 28 IU/L (10-42); BILIRUBIN,TOTAL 0.3 mg/dL (0.2-1.0); BUN - BLOOD UREA NITROGEN 25 mg/dL (6-20); CALCIUM 8.8 mg/dL (8.5-10.3); CARBON DIOXIDE - CO2 22 mmol/L (21-32); CHLORIDE 107 mmol/L (101-111); CREATININE 0.9 mg/dL (0.6-1.2); GFR - MDRD 85 (>89); GLUCOSE 152 mg/dL (70-100); LIPASE 35 U/L (22-51); SALICYLATE 10.5 mg/dL; SODIUM 139 mmol/L (135-145); TOTAL PROTEIN 6.6 g/dL (6.7-8.2)
[2021-09-11] MEDS ORDERED: KETOROLAC 30 MG/ML VIAL IVP STA (13:28)
--- NOTE | 2021-09-11 13:59 | CT Report ---
PROCEDURE: LUMBAR SPINE WO INDICATIONS: Left SI joint pain TECHNIQUE: Noncontrast 3 mm thick sections acquired from the T12 level to the sacrum. Sagittal and coronal refo rmats were constructed. For radiation dose reduction, the following was used: automated exposure co ntrol, adjustment of mA and/or kV according to patient size. COMPARISON: None. FINDINGS: Anterolisthesis of L4 on L5 measuring 3 mm. Left lateral listhesis of L5 on S1 measuring 8 mm. Vertebral body heights maintained. No suspicious lytic or blastic osseous lesion. From L2-L3 through L5-S1, disc height loss with degenerative endplate changes and facet hypertrophy. Findings most pronounced at L4-L5 where there is vacuum disc phenomenon and close approximation of th e endplates, along with degenerative endplate sclerosis. Bulky facet hypertrophy from L3-L4 through L 5-S1 which is also most pronounced at L4-L5, where there is associated subchondral cystic change and subchondral sclerosis as well as probable facet effusions. From L2-L3 through L5-S1 there are varying degrees of neural foraminal and spinal canal stenosis. Sev ere bilateral neural foraminal stenosis at L4-L5 and moderate bilateral neural foraminal stenosis at L3-L4. There is probable mild neural foraminal stenosis at L2-L3 and L5-S1. L4-L5 there is probable s evere spinal canal stenosis due to a combination of cerebral bulge related to listhesis and contracti on which are disc bulge, bulky facet hypertrophy, and buckling of ligamentum flavum. IMPRESSION: Suspected severe spinal canal stenosis at L4-L5. Varying degrees of neural foraminal stenosis, severe bilaterally at L4-L5. Moderate to severe facet arthropathy lower lumbar spine, severe at L4-L5. Reviewed by: Bigg Conway MD on 09/11/2021 1:58 PM PDT Approved by: Bigg Conway MD on 09/11/2021 1:58 PM PDT Station ID: [id number]
[2021-09-11] MEDS ORDERED: CHERRY SYRUP 10 ML UDC PO ONE (14:05)
[2021-09-11] MEDS ORDERED: DEXAMETHASONE 10 MG/ML VIAL PO STA (14:05)
== END 2021-09-11 15:24 | disposition home or self-care (01) ==
LOC: EDUNIT# → ED 12:38
DX: M47.816 Spondylosis without myelopathy or radiculopathy, lumbar region (principal); I10 Essential (primary) hypertension
CPT/HCPCS: 36415; 72131; 80053; 80307; 83690; 85025; 96374; 96375; 96376; 99283; 99284; A9270; G0480; J1170; 80329

== ENCOUNTER 2021-09-27 18:08 | Outpatient (CLI) | payer MEDICARE, MEDICAID | END 2021-09-27 23:59 | disposition home or self-care (01) | LOC: LAB.N 18:08 | PROVIDERS: ATTEND Family Medicine | DX: M71.029 Abscess of bursa, unspecified elbow (principal) | CPT/HCPCS: 87070; 87181; 87205 ==

== ENCOUNTER 2021-12-12 08:00 | Outpatient (CLI) | payer MEDICARE, MEDICAID ==
[2021-12-12 21:12] LABS: BASOPHILS % (AUTO) 0.5 %; EOSINOPHILS # (AUTO) 0.2 10^3/uL (0.0-0.7); EOSINOPHILS % (AUTO) 3.7 %; HCT - HEMATOCRIT 36.2 % (42.0-52.0); HGB - HEMOGLOBIN 11.4 g/dL (14.0-18.0); LYMPHOCYTES # (AUTO) 1.6 10^3/uL (1.5-3.5); LYMPHOCYTES % (AUTO) 26.1 %; MEAN CORPUSCULAR HEMOGLOBIN 28.9 pg (27.0-31.0); MEAN CORPUSCULAR HGB CONC 31.5 g/dL (32.0-36.0); MEAN CORPUSCULAR VOLUME 91.6 fL (80.0-94.0); MEAN PLATELET VOLUME 8.8 fL (7.4-11.4); MONOCYTES # (AUTO) 0.5 10^3/uL (0.0-1.0); MONOCYTES % (AUTO) 8.6 %; NEUTROPHILS # (AUTO) 3.6 10^3/uL (1.5-6.6); NEUTROPHILS % (AUTO) 60.9 %; PLT - PLATELET COUNT 370 10^3/uL (130-450); RED BLOOD COUNT 3.95 10^6/uL (4.70-6.10); RED CELL DISTRIBUTION WIDTH 13.3 % (12.0-15.0); WHITE BLOOD COUNT 5.9 x10^3/uL (4.8-10.8)
== END 2021-12-12 23:59 | disposition home or self-care (01) ==
LOC: LAB.N 08:00
PROVIDERS: ATTEND Physician Assistant Medical
DX: L03.116 Cellulitis of left lower limb (principal)
CPT/HCPCS: 36415; 85025

== ENCOUNTER 2022-04-02 02:51 | Outpatient (CLI) | payer MEDICARE, MEDICAID | END 2022-04-02 02:52 | disposition EMS.NT | LOC: EMS 02:51 | DX: R21 Rash and other nonspecific skin eruption (principal); M54.50 Low back pain, unspecified ==

== ENCOUNTER 2022-04-03 15:24 | Outpatient (CLI) | payer MEDICARE, MEDICAID ==
[2022-04-03 17:37] LABS: BASOPHILS # (AUTO) 0.1 10^3/uL (0.0-0.1); BASOPHILS % (AUTO) 0.7 %; EOSINOPHILS # (AUTO) 0.2 10^3/uL (0.0-0.7); EOSINOPHILS % (AUTO) 2.6 %; HCT - HEMATOCRIT 34.3 % (42.0-52.0); HGB - HEMOGLOBIN 10.5 g/dL (14.0-18.0); LYMPHOCYTES # (AUTO) 1.9 10^3/uL (1.5-3.5); LYMPHOCYTES % (AUTO) 22.7 %; MEAN CORPUSCULAR HEMOGLOBIN 26.9 pg (27.0-31.0); MEAN CORPUSCULAR HGB CONC 30.6 g/dL (32.0-36.0); MEAN CORPUSCULAR VOLUME 87.9 fL (80.0-94.0); MEAN PLATELET VOLUME 9.1 fL (7.4-11.4); MONOCYTES # (AUTO) 0.7 10^3/uL (0.0-1.0); MONOCYTES % (AUTO) 8.6 %; NEUTROPHILS # (AUTO) 5.5 10^3/uL (1.5-6.6); PLT - PLATELET COUNT 314 10^3/uL (130-450); RED CELL DISTRIBUTION WIDTH 14.6 % (12.0-15.0); WHITE BLOOD COUNT 8.5 x10^3/uL (4.8-10.8)
[2022-04-03 18:05] LABS: ALBUMIN 3.5 g/dL (3.2-5.5); ALBUMIN/GLOBULIN RATIO 0.9 (1.0-2.2); BILIRUBIN,TOTAL 0.6 mg/dL (0.2-1.0); CALCIUM 9.2 mg/dL (8.5-10.3); CREATININE 0.7 mg/dL (0.6-1.2); POTASSIUM 4.2 mmol/L (3.5-5.0); TOTAL PROTEIN 7.4 g/dL (6.7-8.2)
[2022-04-03 18:14] LABS: THYROID STIMULATING HORMONE 3.37 uIU/mL (0.34-5.60)
[2022-04-03 18:16] LABS: FREE T3 3.13 pg/mL (2.5-3.9)
[2022-04-03 18:18] LABS: FREE T4 (FREE THYROXINE) 0.99 ng/dL (0.58-1.64)
== END 2022-04-03 15:25 | disposition home or self-care (01) ==
LOC: LAB.N 15:24
PROVIDERS: ATTEND Family Medicine
DX: I10 Essential (primary) hypertension (principal); E03.9 Hypothyroidism, unspecified; R60.9 Edema, unspecified; M48.061 Spinal stenosis, lumbar region without neurogenic claudication; K21.9 Gastro-esophageal reflux disease without esophagitis
CPT/HCPCS: 36415; 80053; 84439; 84443; 84481; 85025

== ENCOUNTER 2022-04-05 22:59 | Outpatient (CLI) | payer MEDICARE, MEDICAID | END 2022-04-05 23:00 | disposition EMS.NT | LOC: EMS 22:59 | DX: Z04.1 Encounter for examination and observation following transport accident (principal) ==

== ENCOUNTER 2022-06-05 16:56 | Outpatient (CLI) | payer MEDICARE, MEDICAID ==
--- NOTE | 2022-06-06 08:31 | XRAY Report ---
PROCEDURE: Lumbar Spine 2 View INDICATIONS: LOW BACK PX TECHNIQUE: 2 views of the lumbar spine were acquired. COMPARISON: Lumbar spine CT 09/11/2021 FINDINGS: Bones: In comparison with prior CT there appear to be 5 nonrib-bearing lumbar-type vertebral bodies w ith hypoplastic ribs at T12 and transitional anatomy at L5-S1. Fusion changes are present from L2 thr ough the pelvis with posterior rods, multiple pedicle screws, and screws transfixing the sacrum and i liac bones. Hardware appears intact. Bilateral hip arthroplasty changes also present. Moderate-severe multilevel degenerative changes of the lumbar spine demonstrated. Possible mild superior endplate co mpression deformity of L3. No suspicious bony lesions. Soft tissues: Overlying bowel gas pattern is normal. Vascular calcifications are present. IMPRESSION: Possible mild superior endplate compression deformity of L3, which would be new compared to the prior CT. Further evaluation with CT can be obtained if clinically indicated. Reviewed by: Montana Lundberg MD on 06/06/2022 8:30 AM PST Approved by: Montana Lundberg MD on 06/06/2022 8:30 AM PST Station ID: [id number]
== END 2022-06-05 23:59 | disposition home or self-care (01) ==
LOC: DI.N 16:56
PROVIDERS: ATTEND Family Medicine
DX: M54.50 Low back pain, unspecified (principal)

== ENCOUNTER 2023-07-16 09:00 | Outpatient (CLI) | payer MEDICARE, MEDICAID | END 2023-07-16 09:15 | disposition home or self-care (01) | LOC: LAB.N 09:00 | PROVIDERS: ATTEND Family Medicine | DX: L03.116 Cellulitis of left lower limb (principal) | CPT/HCPCS: 87070; 87181; 87205 ==